=== PATIENT | male | born 1955 | race Caucasian/White ===

== ENCOUNTER 2016-08-02 12:33 | Day surgery (SDC) | payer BC ==
--- NOTE | 2016-08-02 07:11 | PCM.PREANE ---
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 Respiratory: Reports: shortness of breath (on occassion, smoker) Cardiovascular: Reports: blood pressure problem GI: Reports: no symptoms Other: Reports: none - PHYSICAL ASSESSMENT HR: 78 O2 Sat by Pulse Oximetry: 96 RR: 16 BP: 115/66 Temp: 36.5 C Height: 1.8 m Weight: 95.254 kg NPO Status Date: 08/01/16 NPO Status Time: 23:45 ASA Class: 3 Mental Status: alert & oriented x3 Dentition: Reports: dentures, edentulous Thyro-Mental Finger Breadths: 3 Mouth Opening Finger Breadths: 3 ROM/Head Extension: full Respiratory Status: lungs clear to auscultation bilaterally Cardiovascular Status: regular rate & rhythm, normal S1, S2, no murmur, blood pressure WNL - ALLERGIES Allergies/Adverse Reactions: Allergies Allergy/AdvReac Type Severity Reaction Status Date / Time No Known Allergies Allergy Verified 08/01/16 13:58 - BLOOD Blood Available: No Product(s) Available: None - ANESTHESIA PLAN Preop Beta Juan: Yes Beta Juan: Metoprolol Beta-Juan Last Dose Date: 08/02/16 Beta-Juan Last Dose Time: 06:15 Anesthesia Type Planned: general anesthesia - ACKNOWLEDGEMENTS Pt an appropriate candidate for the planned anesthesia: Yes Alternatives and risks of anesthesia discussed w pt/guardian: Yes Pt/Guardian understands and agree with anesthesia plan: Yes PreAnesthesia Questionnaire Cardiovascular History: Reports: Hypertension Respiratory History: Reports: Bronchitis, recurrent, COPD Gastrointestinal History: Reports: Other (see below) Other Gastrointestinal History: gastric ulcer, abdominal pain Neurological History: Reports: Neuropathy, peripheral Psychiatric History: Reports: Anxiety Endocrine/Metabolic History: Reports: Diabetes, type II Other Hematologic History: leukocytosis Other Immunologic History: malaise, fatigue Oncologic (Cancer) History: Reports: Leukemia - Past Surgical History GI Surgical History: Reports: Other (see below) Other GI Surgeries/Procedures: hernia repair Musculoskeletal Surgical History: Reports: Other (see below) Other Musculoskeletal Surgeries/Procedures:: wrist surgery, ankle surgery - SUBSTANCE USE Smoking Status *Q: Current Every Day Smoker Tobacco Use Within Last Twelve Months: Cigarettes Days Per Week of Alcohol Use: 0 Number of Drinks Per Day: 0 Total Drinks Per Week: 0 Recreational Drug Use History: No - HOME MEDS Home Medications: Home Meds Enalapril [Vasotec] 5 mg PO DAILY 03/01/14 [History] glipiZIDE [Glipizide Xl] 10 mg PO BID 03/01/14 [History] metFORMIN [Glucophage] 1,000 mg PO BID 03/01/14 [History] Hydrocodone/Acetaminophen [Hydrocodone-Acetaminophen 5-325] 1 - 2 tab PO Q6HR PRN 03/31/14 [History] Nilotinib HCl [Tasigna] 300 mg PO BID 03/31/14 [History] Albuterol [IJD: Albuterol HFA] 1 puff .XX Q4HR PRN #8 gm 06/22/16 [Rx] Ondansetron [Zofran] 8 mg PO BID 06/22/16 [History] Acetaminophen/HYDROcodone [[place] 325-5 MG] 1 tab PO Q6H PRN #10 tablet 07/17/16 [Rx] Famotidine [Pepcid] 1 tab PO DAILY 07/17/16 [History] Sucralfate [Carafate] 1 gm PO QID #20 tablet 07/17/16 [Rx] - CURRENT (IN HOUSE) MEDS Current Meds: Current Medications Lactated Ringer's (Ringers, Lactated) 1,000 mls @ 125 mls/hr IV ASDIRECTED BRI Lidocaine/Sodium Bicarbonate (Buffered Lidocaine 1% In Ns 8.4%) 0.25 ml IV ONETIME PRN PRN Reason: Prior to IV Start Sodium Chloride (Saline Flush) 10 ml FLUSH ASDIRECTED PRN PRN Reason: Keep Vein Open
[~2016-08-02 12:33] MED LIST: HYDROmorphone 0.5 MG/0.5 ML Syringe IVPUSH PRN; Lactated Ringers 1,000 ML IV SCH; Lidocaine 1%/Sod Bicarbonate in NS 8.4% 1 ML Syringe IV PRN; Metoclopramide 10 MG/2 ML SDV IVPUSH PRN; Ondansetron 4 MG/2 ML SDV IVPUSH PRN; Sodium Chloride 0.9% 10 ML Syringe FLUSH PRN; fentaNYL 100 MCG/2 ML SDV IVPUSH PRN
[2016-08-02] MEDS ORDERED: Propofol 200 MG/20 ML SDV ONE (12:55)
--- NOTE | 2016-08-02 12:57 | PCM.PREANE ---
Preanesthetic Assessment - ANESTHESIA/TRANSFUSION/FAMILY HX Anesthesia/Transfusion History: No Prior Transfusion(s), Prior Anesthesia ( confused and combative from anesthesia ) Type of Anesthesia Reaction: Reports: Unknown, Other (see below) (COMBATIVE, SWINGS AT PEOPLE) Family History of Anesthesia Reaction: No - REVIEW OF SYSTEMS Constitutional: Reports: no symptoms (obese) PHARMACISTS: Reports: no symptoms Respiratory: Reports: cough (cought comes and goes ), shortness of breath (on occassion, smoker) Cardiovascular: Reports: blood pressure problem GI: Reports: no symptoms Other: Reports: none - PHYSICAL ASSESSMENT HR: 78 O2 Sat by Pulse Oximetry: 96 RR: 16 BP: 115/66 Temp: 36.5 C Vital Signs: Last Vital Signs Temp 36.5 C 08/02/16 07:12 Pulse 78 08/02/16 07:12 Resp 16 08/02/16 07:12 BP 115/66 08/02/16 07:12 Pulse Ox 96 08/02/16 07:12 Height: 1.8 m Weight: 95.254 kg NPO Status Date: 08/01/16 NPO Status Time: 23:45 ASA Class: 3 Mental Status: alert & oriented x3 Airway Class: Mallampati = 1 Dentition: Reports: missing tooth/teeth (only one tooth, not currently loose right lower side ) Thyro-Mental Finger Breadths: 3 Mouth Opening Finger Breadths: 5 ROM/Head Extension: full Respiratory Status: wheezing (in lower lung bases ) Cardiovascular Status: regular rate & rhythm, normal S1, S2, no murmur, blood pressure WNL - ALLERGIES Allergies/Adverse Reactions: Allergies Allergy/AdvReac Type Severity Reaction Status Date / Time No Known Allergies Allergy Verified 08/01/16 13:58 - BLOOD Blood Available: No Product(s) Available: None - ANESTHESIA PLAN Preop Beta Juan: No Anesthesia Type Planned: MAC - ACKNOWLEDGEMENTS Pt an appropriate candidate for the planned anesthesia: Yes Alternatives and risks of anesthesia discussed w pt/guardian: Yes Pt/Guardian understands and agree with anesthesia plan: Yes PreAnesthesia Questionnaire Cardiovascular History: Reports: Hypertension Respiratory History: Reports: Bronchitis, recurrent, COPD Gastrointestinal History: Reports: GERD, Other (see below) Other Gastrointestinal History: gastric ulcer, abdominal pain Neurological History: Reports: Neuropathy, peripheral Psychiatric History: Reports: Anxiety Endocrine/Metabolic History: Reports: Diabetes, type II Other Hematologic History: leukocytosis Other Immunologic History: malaise, fatigue Oncologic (Cancer) History: Reports: Leukemia (2014) - Past Surgical History GI Surgical History: Reports: Other (see below) Other GI Surgeries/Procedures: hernia repair Musculoskeletal Surgical History: Reports: Other (see below) Other Musculoskeletal Surgeries/Procedures:: wrist surgery, ankle surgery - SUBSTANCE USE Smoking Status *Q: Current Every Day Smoker Tobacco Use Within Last Twelve Months: Cigarettes Days Per Week of Alcohol Use: 0 Number of Drinks Per Day: 0 Total Drinks Per Week: 0 Recreational Drug Use History: No - HOME MEDS Home Medications: Home Meds Enalapril [Vasotec] 5 mg PO DAILY 03/01/14 [History] glipiZIDE [Glipizide Xl] 10 mg PO BID 03/01/14 [History] metFORMIN [Glucophage] 1,000 mg PO BID 03/01/14 [History] Hydrocodone/Acetaminophen [Hydrocodone-Acetaminophen 5-325] 1 - 2 tab PO Q6HR PRN 03/31/14 [History] Nilotinib HCl [Tasigna] 300 mg PO BID 03/31/14 [History] Albuterol [IJD: Albuterol HFA] 1 puff .XX Q4HR PRN #8 gm 06/22/16 [Rx] Ondansetron [Zofran] 8 mg PO BID 06/22/16 [History] Acetaminophen/HYDROcodone [[place] 325-5 MG] 1 tab PO Q6H PRN #10 tablet 07/17/16 [Rx] Famotidine [Pepcid] 1 tab PO DAILY 07/17/16 [History] Sucralfate [Carafate] 1 gm PO QID #20 tablet 07/17/16 [Rx] - CURRENT (IN HOUSE) MEDS Current Meds: Current Medications Fentanyl (Sublimaze) 50 mcg IVPUSH Q5M PRN PRN Reason: pain Stop: 08/02/16 18:00 Lactated Ringer's (Ringers, Lactated) 1,000 mls @ 125 mls/hr IV ASDIRECTED BRI Lidocaine/Sodium Bicarbonate (Buffered Lidocaine 1% In Ns 8.4%) 0.25 ml IV ONETIME PRN PRN Reason: Prior to IV Start Metoclopramide HCl (Reglan) 10 mg IVPUSH ONETIME PRN PRN Reason: Nausea/Vomiting Stop: 08/02/16 18:00 Ondansetron HCl (Zofran) 4 mg IVPUSH ONETIME PRN PRN Reason: Nausea/Vomiting Stop: 08/02/16 18:00 Sodium Chloride (Saline Flush) 10 ml FLUSH ASDIRECTED PRN PRN Reason: Keep Vein Open Discontinued Medications Hydromorphone HCl (Dilaudid) 0.5 mg IVPUSH Q15M PRN PRN Reason: Pain (severe 7-10) Stop: 08/02/16 08:31 Propofol (Diprivan 20 Ml) Confirm Administered Dose 200 mg .ROUTE .STK-MED ONE Stop: 08/02/16 12:56
[2016-08-02] MEDS ORDERED: Albuterol 6.7 GM Inhaler INH ONE (13:21)
[2016-08-02] MEDS ORDERED: Midazolam 1 MG/ML 2 ML SDV ONE (13:22)
--- NOTE | 2016-08-02 13:37 | PCM.OPNOTE ---
- General Post-Op/Procedure Note Date of Surgery/Procedure: 08/02/16 Operative Procedure(s): EGD with bx Pre Op Diagnosis: epigastic pain Post-Op Diagnosis: Same Anesthesia Technique: MAC Primary Surgeon: Jorge Fontaine EBL in mLs: 0 Complications: None Condition: Good
--- NOTE | 2016-08-02 13:50 | PCM48HPAN ---
Post Anesthesia Note - EVALUATION WITHIN 48HRS OF ANESTHETIC Vital Signs in Normal Range: Yes Patient Participated in Evaluation: Yes Respiratory Function Stable: Yes (currently on 2L NC, will titrate o2 down to keep saturations above 90) Airway Patent: Yes Cardiovascular Function Stable: Yes Hydration Status Stable: Yes Pain Control Satisfactory: Yes Nausea and Vomiting Control Satisfactory: Yes Mental Status Recovered: Yes
[2016-08-02 14:46] VITALS: BP 144/70
--- NOTE | 2016-08-05 09:33 | OR ---
DATE OF OPERATION: 08/02/2016 SURGEON: Jorge Fontaine MD PREOPERATIVE DIAGNOSIS: Epigastric pain. POSTOPERATIVE DIAGNOSIS: Epigastric pain. OPERATION PERFORMED: EGD with biopsy. FINDINGS: Normal second portion of the duodenum, duodenal bulb, and pyloric channel. Body, antrum, cardia, and fundus of the stomach did not show any acute disease. Biopsies were taken of the antrum looking for H. pylori. J-maneuver demonstrated a large fixed hiatal hernia with the GE junction located at 38 cm. The GE junction showed some mild irregularity, but no acute process. The rest of the esophagus was viewed as the scope withdrawn and was normal. ANESTHESIA: Done under IV sedation. DESCRIPTION OF PROCEDURE: The patient was taken to the endoscopy room, placed in a supine position, connected to monitoring equipment, and given IV sedation. Bite block was inserted. The patient was placed in left lateral position. Video Olympus gastroscope placed in the posterior oropharynx under direct vision, threaded past the cricopharyngeus, down the esophagus, into the stomach. The stomach was insufflated, and the scope passed through the pylorus, to the second portion of the duodenum. Second portion of the duodenum was unremarkable as was the duodenal bulb, and pyloric channel. Body, cardia, and fundus were viewed and did not see any acute pathology. J-maneuver was performed showing a hiatal hernia. Biopsy of the antrum was done looking for H. pylori, and the scope was slowly withdrawn to the GE junction. Hiatal hernia pouch was viewed. No acute process. The Z-line looked slightly irregular, and this was biopsied. The rest of the esophagus was viewed as the scope was withdrawn and no pathology was seen. Specimen sent to pathology in labeled container. The patient will be followed up with Dr. Recinos. ESTIMATED BLOOD LOSS: MMODAL /[id number]
== END 2016-08-02 14:30 | disposition home or self-care (01) ==
LOC: JD.SDS 12:33
PROVIDERS: ATTEND Surgery
DX: K29.50 Unspecified chronic gastritis without bleeding (principal); K44.9 Diaphragmatic hernia without obstruction or gangrene; I10 Essential (primary) hypertension; E78.00 Pure hypercholesterolemia, unspecified; Z72.0 Tobacco use; F32.9 Major depressive disorder, single episode, unspecified; E11.9 Type 2 diabetes mellitus without complications; F17.210 Nicotine dependence, cigarettes, uncomplicated; Z98.890 Other specified postprocedural states; Z79.899 Other long term (current) drug therapy
CPT/HCPCS: 43239; 82962; 88305; A9270; J2250; J7120; J2704

== ENCOUNTER 2018-09-21 17:59 | Emergency (ER) | payer BC ==
[2018-09-21 18:20] VITALS: BP 126/72
--- NOTE | 2018-09-21 18:47 | EDM.PDOC ---
ED HPI GENERAL MEDICAL PROBLEM - General Chief Complaint: Upper Extremity Injury/Pain Stated Complaint: SHOULDER PAIN Time Seen by Provider: 09/21/18 18:28 Source of Information: Reports: Patient History Limitations: Reports: No Limitations - History of Present Illness INITIAL COMMENTS - FREE TEXT/NARRATIVE: Patient is a 63-year-old male who presents ED complaining of right lateral shoulder pain. Patient was woken up last night when his was having a nightmare. Patient's started screaming in bed and he was startled. With movement in bed at a quick speed he injured his right shoulder. Since being awoken he's been experiencing pain to the right shoulder. He was not able to go back to bed. He been working outside all day cut down trees. He states pain was worsened with starting the [employer]. Upon returning back into the resident's the pain to the right shoulder worsen with relaxation. Pain is worse with palpation. Pinpoint along the lateral aspect of the right shoulder. At no time did the shoulder feel like it was dislocated. Denies any neck pain or back pain as well. States he is chronically short of breath due to long history of smoking. Denies any chest pain, short of breath that is worsen, numbness or tingling, pain to the right elbow, wrist, forearm, or hand. Right Shoulder Pain Score (Numeric/FACES): 4 - Related Data Allergies Allergy/AdvReac Type Severity Reaction Status Date / Time No Known Allergies Allergy Verified 09/21/18 18:11 Home Meds: Home Meds Enalapril [Vasotec] 5 mg PO DAILY 03/01/14 [History] glipiZIDE [Glipizide Xl] 10 mg PO BID 03/01/14 [History] metFORMIN [Glucophage] 1,000 mg PO TID 03/01/14 [History] Hydrocodone/Acetaminophen [Hydrocodone-Acetaminophen 5-325] 1 - 2 tab PO Q6HR PRN 03/31/14 [History] Nilotinib HCl [Tasigna] 300 mg PO BID 03/31/14 [History] Albuterol [IJD: Albuterol HFA] 1 puff .XX Q4HR PRN #8 gm 06/22/16 [Rx] Ondansetron [Zofran] 8 mg PO BID 06/22/16 [History] Acetaminophen/HYDROcodone [[place] 325-5 MG] 1 tab PO Q6H PRN #10 tablet 07/17/16 [Rx] Famotidine [Pepcid] 1 tab PO DAILY 07/17/16 [History] Sucralfate [Carafate] 1 gm PO QID #20 tablet 07/17/16 [Rx] Docusate Sodium [Colace] 1 tab PO DAILY 08/02/16 [History] Past Medical History Cardiovascular History: Reports: Hypertension Respiratory History: Reports: Bronchitis, Recurrent, COPD Gastrointestinal History: Reports: GERD, Other (See Below) Other Gastrointestinal History: gastric ulcer, abdominal pain Neurological History: Reports: Neuropathy, Peripheral Psychiatric History: Reports: Anxiety Endocrine/Metabolic History: Reports: Diabetes, Type II Other Hematologic History: leukocytosis Other Immunologic History: malaise, fatigue Oncologic (Cancer) History: Reports: Leukemia - Past Surgical History GI Surgical History: Reports: Other (See Below) Musculoskeletal Surgical History: Reports: Other (See Below) Social & Family History - Tobacco Use Smoking Status *Q: Current Every Day Smoker Years of Tobacco use: 40 Packs/Tins Daily: 0.5 - Caffeine Use Caffeine Use: Reports: None - Recreational Drug Use Recreational Drug Use: No Review of Systems - Review of Systems Review Of Systems: ROS reveals no pertinent complaints other than HPI. ED EXAM, GENERAL - Physical Exam Exam: See Below Exam Limited By: No Limitations General Appearance: Alert, WD/WN, No Apparent Distress Eye Exam: Bilateral Eye: Normal Inspection Ears: Hearing Grossly Normal Nose: Normal Inspection Throat/Mouth: Normal Voice, No Airway Compromise Head: Atraumatic, Normocephalic Neck: Normal Inspection, Supple, Non-Tender, Full Range of Motion. No: Lymphadenopathy (L), Lymphadenopathy (R) Respiratory/Chest: No Respiratory Distress, No Accessory Muscle Use, Prolonged Expiration, Other (diminshed throughout). No: Respiratory Distress, Crackles, Rales, Rhonchi, Wheezing, Stridor, Accessory Muscle Use, Retractions, Splinting Cardiovascular: Normal Peripheral Pulses, Regular Rate, Rhythm, No Murmur Peripheral Pulses: 2+: Radial (L), Radial (R) Back Exam: Normal Inspection, Full Range of Motion. No: Paraspinal Tenderness, Vertebral Tenderness Extremities: Normal Inspection, Other (On examination no asymmetry noted to the right shoulder comparison to the left. No swelling. No bruising. No bony abnormalities. With palpation of the right clavicle no pain. Pain noted with palpation of the right shoulder along the lateral deltoid. Pinpoint in nature. Patient had full active range of motion with worsening pain with any lateral movements. Past range of motion fully intact. No sensory changes noted. No weakness discrepancies between the left and the right shoulder.) Neurological: Alert, Oriented, CN II-XII Intact, Normal Cognition, No Motor/ Sensory Deficits Psychiatric: Normal Affect, Normal Mood Skin Exam: Warm, Dry, Intact, Normal Color, No Rash Course - Vital Signs Last Recorded V/S: Last Vital Signs Temp 97.4 F 09/21/18 18:08 Pulse 75 09/21/18 18:08 Resp 16 09/21/18 18:08 BP 126/72 09/21/18 18:08 Pulse Ox 92 L 09/21/18 18:08 - Re-Assessments/Exams Free Text/Narrative Re-Assessment/Exam: Patient has pinpoint tenderness along the lateral aspect of the right deltoid. Per history and physical exam suspect patient has a deltoid muscle strain. We discussed treatment options. No further testing is required. Return precautions discussed with the patient. Discharge instructions as documented. Departure - Departure Time of Disposition: 18:45 Disposition: Home, Self-Care 01 Condition: Good Clinical Impression: Muscle strain of right shoulder region Qualifiers: Encounter type: initial encounter Qualified Code(s): S46.911A - Strain of unspecified muscle, fascia and tendon at shoulder and upper arm level, right arm , initial encounter - Discharge Information Instructions: Muscle Strain, [id number] Referrals: José Miguel Recinos MD [Primary Care Provider] - Forms: ED Department Discharge Additional Instructions: Refrain from any activities that cause worsening discomfort. May apply ice to affected area 3 times a day, 30 minutes in duration, do not apply ice directly on the skin. Take Aleve 1-2 tablets twice a day. May take Tylenol 650 mg every 4 -6 hours as needed for pain as well. For severe pain take Bon Aqua one tab every 6 hours. Do not take Bon Aqua and Tylenol together. May utilize gentle massage as well to help alleviate some discomfort. Please return back to the ED if you develop any new or worsening symptoms.
== END 2018-09-21 19:03 | disposition home or self-care (01) ==
LOC: JD.ED 17:59
DX: S46.911A Strain of unspecified muscle, fascia and tendon at shoulder and upper arm level, right arm, initial encounter (principal); K21.9 Gastro-esophageal reflux disease without esophagitis; I10 Essential (primary) hypertension; F17.210 Nicotine dependence, cigarettes, uncomplicated; E11.42 Type 2 diabetes mellitus with diabetic polyneuropathy; Z79.899 Other long term (current) drug therapy; Z79.84 Long term (current) use of oral hypoglycemic drugs; X50.9XXA Other and unspecified overexertion or strenuous movements or postures, initial encounter
CPT/HCPCS: 99283

== ENCOUNTER 2019-08-01 22:00 | Emergency (ER) | payer MEDICARE, BC ==
[2019-08-01 22:29] VITALS: BP 157/108; PULSE 85
[2019-08-02] MEDS ORDERED: Ondansetron 4 MG/2 ML SDV IVPUSH ONE (00:03)
[2019-08-02] MEDS ORDERED: HYDROmorphone 1 MG/ML Syringe IVPUSH STA (00:03)
--- NOTE | 2019-08-02 00:10 | EDM.PDOC ---
ED HPI GENERAL MEDICAL PROBLEM - General Chief Complaint: Abdominal Pain Stated Complaint: ABDOMINAL PAIN Time Seen by Provider: 08/01/19 23:39 Source of Information: Reports: Patient, Family (Daughter) History Limitations: Reports: Physical Impairment (Hard of hearing) - History of Present Illness INITIAL COMMENTS - FREE TEXT/NARRATIVE: Mr. Jacobs is a pleasant 64-year-old man with a past medical history significant for untreated GERD, peptic ulcer disease, anxiety, diabetes, and CML, on oral chemotherapy, who states that he has had central abdominal pain on and off for about 5 years. It had recently resolved for about 2 weeks, then returned this past Friday night, 07/30/2019. The patient feels better if he reclines, worse if he is upright or if he eats. Vomiting gives him relief. He takes tramadol, 1 tablet every 4 to 5 hours, which he states gives him relief, but then he sometimes "gets behind" on the tramadol, or believes that he does not need it, therefore stops taking it, only to have the pain recur and be very difficult to relieve again. To relieve constipation from the tramadol, he drinks prune juice and takes milk of magnesia daily. His last bowel movement was this past 07/30/2019. No recent fever. No recent urinary symptoms. No recent cough or shortness of breath. No recent chest pain or palpitations. The patient states that he was seen by a surgeon about [address] scan of his abdomen and pelvis apparently showed some scar tissue and something about a hernia, but the patient is not sure. He is scheduled to follow-up with that surgeon this coming 08/03/2019. The patient states that he checks his blood glucose about every other day, with a typical range between 140 and 150. His most recent Accu-Chek was tonight, with a reading of 235. He last ate around 14:00. Here in the ED, the patient's BP is found to be this elevated at 157/108, otherwise, he is hemodynamically stable, afebrile, saturating 94% on room air. The patient's PCP is Dr. José Miguel Recinos. His Surgeon is Dr. Myriam Lovelace. He did not receive an influenza vaccine this season, and declined an offer to receive one here today. Other Treatments MANAGER BAR: prune juice-mom; fleet enemas; stool softners. Middle Abdomen Pain Score (Numeric/FACES): 8 - Related Data Allergies Allergy/AdvReac Type Severity Reaction Status Date / Time No Known Allergies Allergy Verified 09/21/18 18:11 Home Meds: Home Meds Enalapril [Vasotec] 5 mg PO DAILY 03/01/14 [History] glipiZIDE [Glipizide Xl] 10 mg PO BID 03/01/14 [History] metFORMIN [Glucophage] 1,000 mg PO TID 03/01/14 [History] Nilotinib HCl [Tasigna] 300 mg PO BID 03/31/14 [History] Albuterol [IJD: Albuterol HFA] 1 puff .XX Q4HR PRN #8 gm 06/22/16 [Rx] traMADol [Ultram] 50 mg PO Q6H PRN 08/01/19 [History] Past Medical History Cardiovascular History: Reports: Hypertension Respiratory History: Reports: COPD (suspected, not tested) Gastrointestinal History: Reports: Diverticulosis (on CT 08/02/2019), GERD ( untreated) Neurological History: Reports: Neuropathy, Diabetic Psychiatric History: Reports: Anxiety Endocrine/Metabolic History: Reports: Diabetes, Type II Oncologic (Cancer) History: Reports: Leukemia (CML, on CTx) - Past Surgical History GI Surgical History: Reports: Colonoscopy (x 3), EGD (x 3), Hernia, Abdominal ( periumbilical) Musculoskeletal Surgical History: Reports: Other (See Below) (Right ankle repair , x 3) Social & Family History - Tobacco Use Smoking Status *Q: Current Every Day Smoker Years of Tobacco use: 48 Packs/Tins Daily: 0.5 Packs/Tins Daily Comment: Down from 2 ppd - Caffeine Use Caffeine Use: Reports: Coffee - Alcohol Use Alcohol Use History: No - Recreational Drug Use Recreational Drug Use: No - Living Situation & Occupation Living situation: Reports: , with Spouse Occupation: Disabled ED ROS GENERAL - Review of Systems Review Of Systems: Comprehensive ROS is negative, except as noted in HPI. ED EXAM, GI/ABD - Physical Exam Exam: See Below Exam Limited By: No Limitations General Appearance: Alert, Mild Distress (appears uncomfortable), Thin Eyes: Bilateral: Normal Appearance, EOMI Ears: Normal External Exam, Hearing Loss Nose: Normal Inspection Throat/Mouth: Normal Inspection, Normal Lips, Normal Voice, No Airway Compromise Head: Atraumatic, Normocephalic Neck: Normal Inspection, Full Range of Motion Respiratory/Chest: No Respiratory Distress, Lungs Clear, Normal Breath Sounds, No Accessory Muscle Use Cardiovascular: Normal Peripheral Pulses, Regular Rate, Rhythm, No Edema, No Gallop, No JVD, No Murmur, No Rub GI/Abdominal Exam: Soft, No Organomegaly, No Distention, No Abnormal Bruit, No Mass, Tender (At various/discrete sites surrounding the abdomen, but persistent tenderness just superior to his umbilicus, at a previous periumbilical herniorrhaphy site. A scar is visible at the site, and scar tissue is palpable deep to the visible scar, which is particularly tender, and could represent an incarcerated hernia.), Abnormal Bowel Sounds (somewhat diminished) (Male) Exam: Deferred Rectal (Males) Exam: Deferred Back Exam: Normal Inspection, Full Range of Motion. No: CVA Tenderness (L), CVA Tenderness (R) Extremities: Normal Inspection, Normal Range of Motion, No Pedal Edema, Normal Capillary Refill Neurological: Alert, Oriented, Normal Cognition, No Motor/Sensory Deficits Psychiatric: Normal Affect Skin Exam: Warm, Dry, Intact, Normal Color, No Rash Course - Vital Signs Last Recorded V/S: Last Vital Signs Temp 36.8 C 08/01/19 22:28 Pulse 85 08/01/19 22:28 Resp 20 08/01/19 22:28 BP 157/108 H 08/01/19 22:28 Pulse Ox 94 L 08/01/19 22:28 - Orders/Labs/Meds Labs: Laboratory Tests 08/01/19 08/01/19 Range/Units 23:25 23:25 WBC 8.74 (4.23-9.07) K/mm3 RBC 5.11 (4.63-6.08) M/mm3 Hgb 15.9 (13.7-17.5) gm/dl Hct 47.3 (40.1-51.0) % MCV 92.6 H (79.0-92.2) fl MCH 31.1 (25.7-32.2) pg MCHC 33.6 (32.2-35.5) g/dl RDW Std Deviation 53.5 H (35.1-43.9) fL Plt Count 286 (163-337) K/mm3 MPV 10.1 (9.4-12.3) fl Neutrophils % (Manual) 64 H (40-60) % Band Neutrophils % 3 (0-10) % Lymphocytes % (Manual) 21 (20-40) % Atypical Lymphs % 0 % Monocytes % (Manual) 11 H (2-10) % Eosinophils % (Manual) 1 (0.8-7.0) % Basophils % (Manual) 0 L (0.2-1.2) Platelet Estimate Adequate Plt Morphology Comment Normal Anisocytosis 2+ moderate Macrocytosis 1+ slight Target Cells 1+ slight RBC Morph Comment Not Reportable Sodium 138 (136-145) mEq/L Potassium 3.6 (3.5-5.1) mEq/L Chloride 99 (98-107) mEq/L Carbon Dioxide 30 (21-32) mEq/L Anion Gap 12.6 (5-15) BUN 11 (7-18) mg/dL Creatinine 0.8 (0.7-1.3) mg/dL Est Cr Clr Drug Dosing 94.50 mL/min Estimated GFR (MDRD) > 60 (>60) mL/min BUN/Creatinine Ratio 13.8 L (14-18) Glucose 245 H (80-115) mg/dL Calcium 9.0 (8.5-10.1) mg/dL Total Bilirubin 0.6 (0.2-1.0) mg/dL AST 23 (15-37) U/L ALT 32 (16-63) U/L Alkaline Phosphatase 58 (46-116) U/L Total Protein 7.3 (6.4-8.2) g/dl Albumin 3.5 (3.4-5.0) g/dl Globulin 3.8 gm/dL Albumin/Globulin Ratio 0.9 L (1-2) Lipase 46 L (73-393) U/L Meds: Medications Discontinued Medications Generic Name Dose Route Start Last Admin Trade Name Freq PRN Reason Stop Dose Admin Diatrizoate Meglum/Diatrizoate Sod 60 ml 08/02/19 00:29 08/02/19 01:29 Gastrografin 37% PO 08/02/19 00:30 60 ml ONETIME ONE Administration Hydromorphone HCl 1 mg 08/02/19 00:03 08/02/19 00:20 Dilaudid IVPUSH 08/02/19 00:04 1 mg ONETIME STA Administration Sodium Chloride 1,000 mls @ 150 mls/hr 08/02/19 00:15 08/02/19 00:19 Normal Saline IV 150 mls/hr ASDIRECTED BRI Administration Iopamidol 100 ml 08/02/19 00:29 08/02/19 01:29 Isovue-300 (61%) IVPUSH 08/02/19 00:30 100 ml ONETIME ONE Administration Ondansetron HCl 4 mg 08/02/19 00:03 08/02/19 00:19 Zofran IVPUSH 08/02/19 00:04 4 mg ONETIME ONE Administration Sodium Chloride 10 ml 08/02/19 00:29 08/02/19 01:29 Saline Flush FLUSH 10 ml ONETIME PRN Administration KEEP VEIN OPEN - Re-Assessments/Exams Free Text/Narrative Re-Assessment/Exam: 08/02/19 00:05 The patient has sites of tenderness circling his abdomen, but is primarily tender just superior to his umbilicus, at the site of a previous periumbilical herniorrhaphy. I am concerned about an incarcerated hernia at this site. I have ordered a work-up that includes blood work and a CT scan of his abdomen and pelvis with oral and IV contrast. In the meantime, the patient will be given IV Dilaudid, IV Zofran, and IV fluid. 08/02/19 02:31 The patient CBC is unremarkable. His CMP is remarkable for a blood glucose elevated at 245, and is otherwise unremarkable. His lipase is within normal limits at 46. CT of the abdomen and pelvis with oral and IV contrast as read by Constance as: 1. No ventral hernia seen. 2. Mild stranding of the subcutaneous fat adjacent to the umbilicus with small varices in this area. 3. Nonacute findings as outlined above. 08/02/19 02:40 Test results discussed with the patient, his daughter, and his parts analyst (now present). He states that within a few minutes of receiving IV Dilaudid, his pain resolved completely and has not recurred. As above, other than hyperglycemia, roman's work-up is unremarkable, and does not explain the cause of his pain. The patient will be discharged home with a CD-ROM of the CT of his abdomen and pelvis that he can take with him when he follows up with his Surgeon in [place] 08/03/2019. Departure - Departure Time of Disposition: 02:43 Disposition: Home, Self-Care 01 Condition: Good Clinical Impression: Periumbilical abdominal pain of unknown etiology, Hyperglycemia due to type 2 diabetes mellitus - Discharge Information *PRESCRIPTION DRUG MONITORING PROGRAM REVIEWED*: Not Applicable *COPY OF PRESCRIPTION DRUG MONITORING REPORT IN PATIENT KATERINE: Not Applicable Instructions: Type 2 Diabetes Mellitus, Diagnosis, Adult, Hyperglycemia, Easy- to-Read, Abdominal Pain, Adult, [id number] Referrals: Jsoé Miguel Recinos MD [Primary Care Provider] - Forms: ED Department Discharge Additional Instructions: You were seen in the emergency room for central abdominal pain on and off for the past 5 years. Work-up in the ER included blood work and a CT scan of your abdomen and pelvis with oral and IV contrast. Your blood work found your blood sugar to be elevated at 245. The remainder of your work-up, including the CT scan, was unremarkable, and does not explain the cause of your pain. You have been provided with a CD-ROM of your CT scan images. Take this with you when you follow-up with your Surgeon in [place] , Friday, 2019. If any other problems, please do not hesitate to return to the ER. Sepsis Event Note - Evaluation Sepsis Screening Result: No Definite Risk - Focused Exam Date Exam was Performed: 08/02/19 Time Exam was Performed: 23:52
[2019-08-02] MEDS ORDERED: Sodium Chloride 0.9% 1,000 ML IV SCH (00:15)
[2019-08-02] MEDS ORDERED: Sodium Chloride 0.9% 10 ML Syringe FLUSH PRN (00:29)
[2019-08-02] MEDS ORDERED: Iopamidol 612 MG/ML 100 ML Bottle IVPUSH ONE (00:29)
[2019-08-02] MEDS ORDERED: Diatrizoate Meglumine/Diatrizoate Sodium 37% 120 ML Bottle PO ONE (00:29)
--- NOTE | 2019-08-02 07:32 | CT ---
CT abdomen and pelvis Technique: Multiple axial sections were obtained from above the dome of the diaphragm inferiorly through the pubic symphysis. Intravenous and oral contrast was utilized. Delayed images were also obtained through the bladder. Findings: Visualized lung bases show nothing acute. Several small low-density findings are seen within the liver most likely representing small cysts. Spleen appears within normal limits. Adrenal glands show no nodule. Kidneys show symmetric contrast enhancement without hydronephrosis or mass. Pancreas is within normal limits. Gallbladder contains no calcified gallstones. Minimal increased density is seen around the umbilicus which is an interval change from prior study. Several small abdominal wall vessels are seen within the subcutaneous fat in this area. Uncertain if findings represent inflammation from venous thrombosis or represents inflammatory change from small area of fat necrosis. Very minimal fat-containing umbilical hernia is noted. Scattered areas of bowel wall edema noted throughout the abdomen. No bowel dilatation is appreciated. No pelvic mass or adenopathy is appreciated. Appendix felt to be partially visualized and is normal in size. Aorta shows no aneurysm. Delayed images show contrast within the bladder and distal ureters. Bone window settings were reviewed which show slight degenerative change scattered within the spine. Endplate concavity seen off L4 superiorly with disc protrusion into the endplate. Impression: 1. Minimal inflammatory change around the umbilicus likely representing slight inflammatory change from either small area of fat necrosis or inflammatory change from an adjacent vessel thrombosis. 2. Very minimal fat-containing umbilical hernia seen. 3. Mild diffuse body wall edema. 4. Other findings believed to be incidental as noted above. Nothing acute is otherwise seen. Diagnostic code #3 This report was dictated in [place] Standard Time I agree with preliminary report from [facility], finalized on 08/02/19, 3:11 AM Central Time
== END 2019-08-02 02:53 | disposition home or self-care (01) ==
LOC: JD.ED 22:00
DX: E11.65 Type 2 diabetes mellitus with hyperglycemia (principal); R10.33 Periumbilical pain; E11.42 Type 2 diabetes mellitus with diabetic polyneuropathy; I10 Essential (primary) hypertension; J44.9 Chronic obstructive pulmonary disease, unspecified; C92.10 Chronic myeloid leukemia, BCR/ABL-positive, not having achieved remission; F17.210 Nicotine dependence, cigarettes, uncomplicated; Z79.84 Long term (current) use of oral hypoglycemic drugs; Z79.899 Other long term (current) drug therapy
CPT/HCPCS: 36415; 74177; 80053; 83690; 85007; 85027; 96361; 96374; 96375; 99284; J1170; J2405; J7030; Q9963; Q9967

== ENCOUNTER 2021-11-11 13:21 | Emergency (ER) | payer MEDICARE, BC ==
[2021-11-11 13:59] VITALS: BP 126/93; PULSE 104
== END 2021-11-11 15:43 | disposition home or self-care (01) ==
LOC: JD.ED 13:21
DX: M77.8 Other enthesopathies, not elsewhere classified (principal); Z79.899 Other long term (current) drug therapy; Z79.84 Long term (current) use of oral hypoglycemic drugs; J44.9 Chronic obstructive pulmonary disease, unspecified; I10 Essential (primary) hypertension; E11.40 Type 2 diabetes mellitus with diabetic neuropathy, unspecified; F17.210 Nicotine dependence, cigarettes, uncomplicated
CPT/HCPCS: 73030-26-LT; 73030-LT; 99283; 99283-25

== ENCOUNTER 2021-12-04 13:01 | Emergency (ER) | payer MEDICARE, BC ==
[2021-12-04 14:28] VITALS: BP 105/56; PULSE 60
[2021-12-04] MEDS: Sodium Chloride 0.9% 10 ML Syringe FLUSH PRN ×2 (15:21→15:39)
[2021-12-04] MEDS ORDERED: Sodium Chloride 0.9% 1,000 ML IV ONE ×2 (15:29→17:00)
[2021-12-04] MEDS ORDERED: HYDROmorphone 0.5 MG/0.5 ML Syringe IVPUSH ONE ×2 (15:29→18:05)
[2021-12-04] MEDS ORDERED: cefTRIAXone 1 GM in Sodium Chloride 0.9% 100 ML IV ONE (17:00)
[2021-12-04] MEDS ORDERED: Sodium Chloride 0.9% 10 ML Syringe FLUSH ONE (18:23)
[2021-12-04] MEDS ORDERED: Iopamidol 612 MG/ML 100 ML Bottle IVPUSH ONE (18:23)
== END 2021-12-04 19:55 | disposition home or self-care (01) ==
LOC: JD.ED 13:01
DX: J18.9 Pneumonia, unspecified organism (principal); E11.65 Type 2 diabetes mellitus with hyperglycemia; I48.91 Unspecified atrial fibrillation; I10 Essential (primary) hypertension; J44.9 Chronic obstructive pulmonary disease, unspecified; E11.40 Type 2 diabetes mellitus with diabetic neuropathy, unspecified; K21.9 Gastro-esophageal reflux disease without esophagitis; F17.210 Nicotine dependence, cigarettes, uncomplicated; Z79.84 Long term (current) use of oral hypoglycemic drugs
CPT/HCPCS: 36415; 71045; 74177; 82947; 83605; 87040; 93005; 96361; 96365; 96375; 96376; 99285; J0696; J1170; J3490; J7030; Q9967; 93010; 99284

== ENCOUNTER 2021-12-07 16:35 | Emergency (ER) | payer MEDICARE, BC ==
[2021-12-07 17:44] VITALS: BP 96/57; PULSE 68
[2021-12-07 18:50] LABS: CORONAVIRUS COVID-19 NAA POSITIVE (NEGATIVE)
== END 2021-12-07 20:45 | disposition home or self-care (01) ==
LOC: JD.ED 16:35
DX: U07.1 COVID-19 (principal); J44.9 Chronic obstructive pulmonary disease, unspecified; E11.21 Type 2 diabetes mellitus with diabetic nephropathy; I10 Essential (primary) hypertension; F17.210 Nicotine dependence, cigarettes, uncomplicated; Z79.899 Other long term (current) drug therapy; Z79.84 Long term (current) use of oral hypoglycemic drugs
CPT/HCPCS: 0240U; 93005; 99283